=== PATIENT | male | born 1970 | race Caucasian/White ===

== ENCOUNTER → 2017-09-05 | Outpatient (CLI) | payer BC ==
--- NOTE | 2017-09-22 10:44 | EM ---
EVENT MONITOR REFERRING PHYSICIAN: Dr. Hua. INDICATION: Cardiac arrhythmia. The patient was monitored for 14 days. The baseline rhythm seems to be sinus mechanism. The patient had multiple episodes of sinus tachycardia and sinus bradycardia. There was also multiple episodes of PACs and PVCs. He had 1 episode of paroxysmal atrial tachycardia with 7 beats. No evidence of any sustained cardiac arrhythmia noted. No evidence of any advanced AV block. No evidence of any sinus node dysfunction. CONCLUSION: 1. This is a 14-day event monitor. 2. Sinus rhythm as a baseline mechanism. 3. The patient had 1 episode of atrial tachycardia of 7 beats noted and it was asymptomatic. 4. Beside that, there is no evidence of any cardiac arrhythmia. 5. No evidence of any sinus pause or sinus arrest. 6. There is no evidence of any advanced AV block. MMODL / IJN: [id number] /
== END | disposition home or self-care (01) ==
LOC: RADECHMAIN 12:53
PROVIDERS: ATTEND Internal Medicine
DX: I49.9 Cardiac arrhythmia, unspecified (principal); I47.1 Supraventricular tachycardia
CPT/HCPCS: 93270; 93271

== ENCOUNTER → 2020-02-11 | Outpatient (CLI) | payer BC | END | disposition home or self-care (01) | DX: K81.9 Cholecystitis, unspecified (principal) | CPT/HCPCS: 76705 ==

== ENCOUNTER 2020-06-03 07:37 | Day surgery (SDC) | payer BC ==
[2020-06-02 10:09] VITALS: BMI 29.0
[~2020-06-03 07:37] MED LIST: LACTATED RINGERS 1,000 ML IV SCH
[2020-06-03 08:05] VITALS: RESP 16; TEMP 97.2
[2020-06-03] MEDS ORDERED: LIDOCAINE 1% (10MG/ML) FOR IV START INTRADERMA ONE (08:10)
[2020-06-03] MEDS ORDERED: PROPOFOL 10 MG/ML 20 ML VIAL IV ONE (08:29)
--- NOTE | 2020-06-03 08:31 | P.GSHP ---
History of Present Illness H&P Date: 06/03/20 Chief Complaint: Frequent vomiting, GERD 50-year-old male had 4 episodes of nausea vomiting and diarrhea over a two-month span. He has been symptom free for the last few months. She also with history of hiatal hernia and chronic reflux. Takes omeprazole every other day. Had a previous EGD 13 years ago. No dysphagia. No melena. Past Medical History Past Medical History: GERD/Reflux, Hyperlipidemia, Hypertension Additional Past Medical History / Comment(s): GOUT History of Any Multi-Drug Resistant Organisms: None Reported Past Surgical History: Adenoidectomy, Hernia Repair, Orthopedic Surgery, Tonsillectomy Additional Past Surgical History / Comment(s): LT SHOULDER SX. EGD. UVULA REMOVED Past Anesthesia/Blood Transfusion Reactions: No Reported Reaction Smoking Status: Never smoker - Past Family History Mother History Unknown: Yes Additional Family Medical History / Comment(s): PT ADOPTED-BIOLOGICAL HHX UNKNOWN Medications and Allergies Home Medications Medication Instructions Recorded Confirmed Type Diltiazem HCl [Cartia Xt] 120 mg PO DAILY 06/02/20 06/02/20 History Febuxostat [Uloric] 40 mg PO DAILY 06/02/20 06/02/20 History Gemfibrozil [Lopid] 600 mg PO DAILY 06/02/20 06/02/20 History Hydrochlorothiazide 12.5 mg PO DAILY 06/02/20 06/02/20 History Milk Thistle 250 mg PO DAILY 06/02/20 06/02/20 History [place]-3 Fatty Acids/Fish Oil 1 cap PO DAILY 06/02/20 06/02/20 History [[place]-3 Fish Oil 1,200 mg Sfgl] Omeprazole [PriLOSEC] 10 mg PO Q2D 06/02/20 06/02/20 History Allergies Allergy/AdvReac Type Severity Reaction Status Date / Time No Known Allergies Allergy Verified 06/03/20 08:02 Surgical - Exam Vital Signs Temp Pulse Resp BP Pulse Ox 97.2 F L 68 16 126/75 100 06/03/20 08:04 06/03/20 08:04 06/03/20 08:04 06/03/20 08:04 06/03/20 08:04 Physical exam: General: Well-developed, well-nourished HEENT: Normocephalic, sclerae nonicteric Abdomen: Nontender, nondistended Extremities: No edema Neuro: Alert and oriented Assessment and Plan (1) GERD (gastroesophageal reflux disease) Narrative/Plan: Will proceed with upper endoscopy. Current Visit: Yes Status: Acute Code(s): K21.9 - GASTRO-ESOPHAGEAL REFLUX DISEASE WITHOUT ESOPHAGITIS SNOMED Code(s): 636969611
--- NOTE | 2020-06-03 08:40 | P.PCN ---
Date of Procedure: 06/03/20 Procedure(s) Performed: Preoperative Dx: GERD, intermittent nausea vomiting Postoperative Dx: Gastritis, small sliding hiatal hernia Procedure: EGD with Bx Anesthesia: Sedation Endoscopist: Dr. Rodriguez Specimens: Antrum Endoscopic Procedure: The patient was on the endoscopy table in the left decubitus position. The Olympus gastroscope was inserted into the oropharynx and passed under direct visualization to the region of the third portion of the duodenum. From that point the scope was slowly withdrawn inspecting all surfaces carefully. There were no neoplastic inflammatory or polypoid lesions throughout the duodenum. The pylorus was widely patent. The stomach was carefully inspected. There was mild gastritis present. A biopsy of the antrum took place to rule out H. pylori. Retroflexion revealed a small sliding hiatal hernia. The esophagus was then carefully examined. There were no neoplastic inflammatory or polypoid lesions throughout the visualized esophagus. The patient was then taken to the recovery room in stable condition per anesthesia guidelines. Recommendations: Await biopsy results. Continue every other day antiacid therapy. Repeat EGD at time of next colonoscopy
[2020-06-03 08:58] VITALS: BP 117/81; PULSE 66
== END 2020-06-03 09:29 ==
LOC: ORWHC2ENDO 07:37
PROVIDERS: ATTEND Surgery
DX: K29.50 Unspecified chronic gastritis without bleeding (principal); K44.9 Diaphragmatic hernia without obstruction or gangrene; K21.9 Gastro-esophageal reflux disease without esophagitis; K22.8 Other specified diseases of esophagus; I10 Essential (primary) hypertension; E78.5 Hyperlipidemia, unspecified; Z79.899 Other long term (current) drug therapy; Z90.89 Acquired absence of other organs; Z98.890 Other specified postprocedural states; M10.9 Gout, unspecified
CPT/HCPCS: 43239; J2704; 88305

== ENCOUNTER 2021-06-02 09:45 | Day surgery (SDC) | payer BC ==
[2021-05-28 14:42] VITALS: BMI 29.0
[2021-06-02 09:57] VITALS: TEMP 98.1
[2021-06-02] MEDS ORDERED: LIDOCAINE 1% (10MG/ML) FOR IV START INTRADERMA ONE (10:07)
[2021-06-02] MEDS ORDERED: LACTATED RINGERS 1,000 ML IV ONE (10:07)
[2021-06-02] MEDS ORDERED: LIDOCAINE 1% INJ 10MG/ML (20 ML MDV) ONE (10:15)
[2021-06-02] MEDS ORDERED: PROPOFOL 10 MG/ML 20 ML VIAL IV ONE (10:15)
[2021-06-02] MEDS ORDERED: MIDAZOLAM 2 MG/2 ML VIAL ONE (10:15)
--- NOTE | 2021-06-02 10:21 | P.GSHP ---
History of Present Illness H&P Date: 06/02/21 Chief Complaint: GERD, screening Patient here today for colonoscopy. Patient has not had 1 previously. No bowel complaints. No family history of colon cancer. He had an upper endoscopy last May. There was a small subcutaneous nodule near the GE junction which we have advised follow-up EGD in 1 year. We will add EGD to the the scheduled colonoscopy. Patient also describes intermittent episodes of vomiting. Happens once every 3-4 months. Past Medical History Past Medical History: GERD/Reflux, Hyperlipidemia, Hypertension, Sleep Apnea/CPAP/BIPAP Additional Past Medical History / Comment(s): Gout. Uses cpap History of Any Multi-Drug Resistant Organisms: None Reported Past Surgical History: Adenoidectomy, Hernia Repair, Orthopedic Surgery, Tonsi llectomy Additional Past Surgical History / Comment(s): LT SHOULDER SX. EGD. UVULA REMOVED Past Anesthesia/Blood Transfusion Reactions: No Reported Reaction Smoking Status: Never smoker - Past Family History Mother History Unknown: Yes Additional Family Medical History / Comment(s): PT ADOPTED-BIOLOGICAL HHX UNKNOWN Medications and Allergies Home Medications Medication Instructions Recorded Confirmed Type Diltiazem HCl [Cartia Xt] 120 mg PO DAILY 06/02/20 06/02/21 History Febuxostat [Uloric] 40 mg PO DAILY 06/02/20 06/02/21 History Gemfibrozil [Lopid] 600 mg PO DAILY 06/02/20 06/02/21 History Hydrochlorothiazide 12.5 mg PO DAILY 06/02/20 06/02/21 History [hydroCHLOROthiazide] Milk Thistle 250 mg PO DAILY 06/02/20 06/02/21 History [place]-3 Fatty Acids/Fish Oil 1 cap PO DAILY 06/02/20 06/02/21 History [[place]-3 Fish Oil 1,200 mg Sfgl] Omeprazole [PriLOSEC] 10 mg PO Q2D 06/02/20 06/02/21 History Allergies Allergy/AdvReac Type Severity Reaction Status Date / Time No Known Allergies Allergy Verified 05/28/21 14:29 Surgical - Exam Vital Signs Temp Pulse Resp BP Pulse Ox 98.1 F 73 16 128/84 100 06/02/21 09:56 06/02/21 09:56 06/02/21 09:56 06/02/21 09:56 06/02/21 09:56 Physical exam: General: Well-developed, well-nourished HEENT: Normocephalic, sclerae nonicteric Abdomen: Nontender, nondistended Extremities: No edema Neuro: Alert and oriented Assessment and Plan (1) GERD (gastroesophageal reflux disease) Narrative/Plan: Will proceed with upper and lower endoscopy Current Visit: No Status: Acute Code(s): K21.9 - GASTRO-ESOPHAGEAL REFLUX DISEASE WITHOUT ESOPHAGITIS SNOMED Code(s): 938867281
--- NOTE | 2021-06-02 10:39 | P.PCN ---
Date of Procedure: 06/02/21 Procedure(s) Performed: PREOPERATIVE DIAGNOSIS: GERD, previous esophageal nodule, screening POSTOPERATIVE DIAGNOSIS: Minimal gastritis, normal colon PROCEDURE: 1. EGD with biopsy 2. Colonoscopy ANESTHESIA: MAC SURGEON: Lakhwinder Rodriguez M.D. SPECIMENS: Antrum ENDOSCOPIC PROCEDURE: The patient was on the endoscopy table in the left decubitus position. The Olympus gastroscope was inserted into the oropharynx and passed under direct visualization to the region of the third portion of the duodenum. From that point the scope was slowly withdrawn inspecting all surfaces carefully. There were no neoplastic inflammatory or polypoid lesions throughout the duodenum. The pylorus was widely patent. The stomach was carefully inspected. There was minimal gastritis present. A biopsy of the antrum took place to rule out H. pylori. Retroflexion revealed a normal hiatus. The esophagus was then carefully examined. There were no neoplastic inflammatory or polypoid lesions throughout the visualized esophagus. The patient was kept on the endoscopy table in the left decubitus position. The Olympus colonoscope was inserted into the anus and passed under direct visualization to the base of the cecum. The appendiceal orifice was visualized. From that point the scope was slowly withdrawn inspecting all surfaces carefully. There were no neoplastic inflammatory or polypoid lesions throughout the cecum, ascending, transverse, descending, sigmoid and rectum. There was mild left-sided diverticulosis noted. Digital rectal examination was normal. The patient was taken to the recovery room in stable condition per anesthesia guidelines. RECOMMENDATIONS: Resume diet. Follow colonoscopy 10 years.
[2021-06-02 11:00] VITALS: BP 104/79; PULSE 72; RESP 16
== END 2021-06-02 11:33 | disposition home or self-care (01) ==
LOC: ORWHC2ENDO 09:45
PROVIDERS: ATTEND Surgery
DX: K21.9 Gastro-esophageal reflux disease without esophagitis (principal); K29.50 Unspecified chronic gastritis without bleeding; E78.5 Hyperlipidemia, unspecified; I10 Essential (primary) hypertension; M10.9 Gout, unspecified; G47.33 Obstructive sleep apnea (adult) (pediatric)
CPT/HCPCS: 88305; 45378; 43239; J2250; J2001; J2704